=== PATIENT | female | born 1940 | race Caucasian/White ===

== ENCOUNTER 2019-09-12 05:23 | Emergency (ER) | payer MEDICARE ==
[~2019-09-12] VITALS: Ht 167.6 cm; Wt 82.5 kg
[~2019-09-12 05:23] MED LIST: COLE1TAB2 PO; DONE10TA7 PO; ESTR0.5T PO; GABA300C10 PO; LEVO100T5 PO; MELO15TA6 PO; PANT40TA5 PO
--- NOTE | 2019-09-12 05:30 | NUR ---
Pt bib ems from snf c/o palpitations and sob since approx 0430. Pt also voiced concerns about hypotension, but that is not present currently. 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 Pt a&ox4, at bedside.
[2019-09-12] MEDS ORDERED: SODIUM CHLORIDE FLUSH 10ML SYR IVF ONE (06:00)
[2019-09-12] MEDS ORDERED: SODIUM CHLORIDE 0.9% 1,000ML IVBOLUS ONE (06:00)
[2019-09-12] MEDS ORDERED: ASPI-496 PO (06:32)
[2019-09-12] MEDS ORDERED: LIPA1CAP4 PO (06:32)
[2019-09-12] MEDS ORDERED: LIPA1CAP2 PO (06:32)
[2019-09-12 06:42] LABS: BASOPHILS # (AUTO) 0.01 x10^3/uL (0-0.1); BASOPHILS % (AUTO) 0 % (0-1); EOSINOPHILS # (AUTO) 0.18 x10^3/uL (0-0.4); EOSINOPHILS % (AUTO) 2 % (1-7); LYMPHOCYTES # (AUTO) 1.55 x10^3/uL (1-3.4); LYMPHOCYTES % (AUTO) 14 % (22-44); MD NO; MEAN CORPUSCULAR HEMOGLOBIN 26.9 pg (27.0-34.8); MEAN CORPUSCULAR HGB CONC 32.2 g/dL (32.4-35.8); MEAN CORPUSCULAR VOLUME 83.6 fL (80-100); MEAN PLATELET VOLUME 8.8 fL (7.4-10.4); MONOCYTES # (AUTO) 1.12 x10^3/uL (0.2-0.8); MONOCYTES % (AUTO) 10 % (2-9); NEUTROPHILS # (AUTO) 7.98 x10^3/uL (1.8-6.8); NEUTROPHILS % (AUTO) 74 % (42-75); PLATELET COUNT 343 x10^3/uL (130-400); RED BLOOD COUNT 3.82 x10^6/uL (3.82-5.3); RED CELL DISTRIBUTION WIDTH 13.6 % (9.6-15.2)
[2019-09-12 06:47] LABS: ALBUMIN 2.4 g/dL (3.4-5.0); ANION GAP 8 mmol/L (5-15); CALCIUM 7.8 mg/dL (8.5-10.1); CHLORIDE 97 mmol/L (98-107)
[2019-09-12] MEDS ORDERED: DIPH1TAB PO (06:50)
[2019-09-12] MEDS ORDERED: METO-282 PO (06:50)
[2019-09-12] MEDS ORDERED: ESTR1TAB15 PO (06:50)
[2019-09-12] MEDS ORDERED: OXYC5TAB3 PO (06:50)
--- NOTE | 2019-09-12 06:52 | NUR ---
Took report from Milagro SPENCER, assume care at this time. Went over plan of care. warm blanket given. Call light in reach.
[2019-09-12 06:53] LABS: ALANINE AMINOTRANSFERASE 62 U/L (12-78); ALKALINE PHOSPHATASE 229 U/L (45-117); BILIRUBIN,TOTAL 0.6 mg/dL (0.2-1.0); CREATININE 0.75 mg/dL (0.55-1.02); TOTAL PROTEIN 6.1 g/dL (6.4-8.2)
[2019-09-12] MEDS ORDERED: AZITHROMYCIN 500 MG in SODIUM CHLORIDE 0.9% 250 ML IV ONE (06:57)
[2019-09-12] MEDS ORDERED: CEFTRIAXONE PMX 1GM/50ML 50 ML IVPB ONE (07:00)
[2019-09-12] MEDS ORDERED: POTASSIUM CHLORIDE 20 MEQ TAB.ER.PRT PO ONE (07:30)
[2019-09-12] MEDS ORDERED: ASPIRIN 81 MG TABLET CHEW PO ONE (07:30)
[2019-09-12 07:54] VITALS: BP 123/69
[2019-09-12] MEDS ORDERED: ASPIRIN 81 MG TABLET CHEW ONE (07:58)
[2019-09-12] MEDS ORDERED: POTASSIUM CHLORIDE 20 MEQ TAB.ER.PRT ONE (07:58)
[2019-09-12] MEDS ORDERED: CODE BLUE RESPONSE XX ONE (08:00)
[2019-09-12] MEDS ORDERED: SODIUM CHLORIDE 0.9%, 250ML ONE (08:00)
[2019-09-12] MEDS ORDERED: SODIUM BICARB 8.4%, 50ML SYRINGE ONE (08:00)
[2019-09-12] MEDS ORDERED: SODIUM BICARBONATE 1 MEQ/ML, 50ML VIAL ONE (08:00)
[2019-09-12] MEDS ORDERED: EPINEPHRINE 1 MG/ML, 1ML ONE (08:00)
[2019-09-12] MEDS ORDERED: ETOMIDATE 20 MG/10 ML ONE (08:00)
[2019-09-12] MEDS ORDERED: EPINEPHRINE 1 MG/ML, 30ML ONE (08:00)
[2019-09-12] MEDS ORDERED: EPINEPHRINE SYRINGE 0.1 MG/ML, 10ML ONE ×2 (08:00)
--- NOTE | 2019-09-12 08:02 | NUR ---
PT WAS ASSISTED TO BEDSIDE COMMODE BY CT STILL ON THE MONITOR AND HELPED BACK TO BED BY WHEN PT BECAME UNRESPONSIVE, NISREEN MULLER CALLED ( SEE CODE CHARTING)
[2019-09-12] MEDS ORDERED: PROPOFOL 10 MG/ML, 20ML ONE (08:10)
[2019-09-12] MEDS ORDERED: PROPOFOL 100 ML IV ONE (08:11)
[2019-09-12] MEDS ORDERED: SODIUM BICARBONATE 8.4% 150 MEQ in DEXTROSE 5% 1,000 ML IV SCH (09:00)
[2019-09-12] MEDS ORDERED: ALTEPLASE 100 MG in BAG 1 EACH IV ONE (09:00)
[2019-09-12] MEDS ORDERED: ALTEPLASE 10 MG in SODIUM CHLORIDE 0.9% 90 ML IV SCH (09:00)
--- NOTE | 2019-09-12 09:39 | NUR ---
TASK RN: SPOKE Mouna/ TRIXIE FROM SURVE[facility]ANCE SYSTEMS ANALYST'S OFFICE WHO DECLINES THIS A SURVEILLANCE SYSTEMS ANALYST'S CASE.
--- NOTE | 2019-09-12 09:52 | NUR ---
TASK RN: ASYA W/ TYLER FROM [employer]. REFERRAL #[id number]
--- NOTE | 2019-09-12 10:08 | NUR ---
TASK RN: TRIXIE FROM [facility]S OFFICE CALLED AND PROVIDED CASE # [id number]
--- NOTE | 2019-09-12 10:16 | NUR ---
TASK RN: CLINICAL MOLECULAR GENETICIST'S OFFICE REQUESTING PT CHART. CHART FAXED TO [phone].
== END 2019-09-12 11:45 | disposition expired ==
LOC: ED 05:44 → UNDOADMIN 07:03 → EDIP 07:03 → ED 11:45
DX: I26.09 Other pulmonary embolism with acute cor pulmonale (principal); I46.9 Cardiac arrest, cause unspecified; I95.9 Hypotension, unspecified; R00.2 Palpitations; R79.89 Other specified abnormal findings of blood chemistry; I10 Essential (primary) hypertension; E03.9 Hypothyroidism, unspecified; Z96.651 Presence of right artificial knee joint
CPT/HCPCS: 31500; 36415; 36556; 71045; 71275; 80053; 83605; 84484; 85025; 85379; 87040; 92950; 93005; 94002; 96360; 99291; 99292; J0171; J7030; J7050